=== PATIENT | female | born 1950 | race Caucasian/White ===

== ENCOUNTER 2017-07-20 09:42 | Emergency (ER) | payer MEDICARE, MEDICAID ==
[2017-07-20] MEDS ORDERED: LORazepam 2 MG/ML SDV ONE ×4 (09:45→10:23)
[2017-07-20] MEDS ORDERED: Etomidate 2 MG/ML 20 ML SDV IVPUSH ONE (09:50)
[2017-07-20] MEDS ORDERED: Rocuronium 50 MG/5 ML Vial ONE (09:50)
[2017-07-20] MEDS ORDERED: Sodium Chloride 0.9% 10 ML Syringe FLUSH PRN (09:51)
[2017-07-20] MEDS ORDERED: Sodium Chloride 0.9% 1,000 ML IV ONE (09:52)
[2017-07-20] MEDS ORDERED: DEXTROSE IV ONE ×2 (10:00)
[2017-07-20] MEDS ORDERED: [UNRECOGNIZED DRUG - OTHER] IV ONE ×2 (10:00)
[2017-07-20] MEDS ORDERED: FOSPHENYTOIN IV ONE ×2 (10:00)
[2017-07-20] MEDS ORDERED: levETIRAcetam 500 MG/5 ML SDV ONE (10:00)
[2017-07-20] MEDS ORDERED: WATER IV ONE ×2 (10:00)
[2017-07-20] MEDS ORDERED: Sodium Chloride 0.9% 100 ML ONE (10:01)
--- NOTE | 2017-07-20 10:21 | CT ---
Head CT Technique: Multiple axial sections through the brain were obtained. Intravenous contrast was not utilized. Comparison: No previous intracranial imaging. Findings: Calcification with slight surrounding low density is seen within the posterior right frontal region. Calcification measures approximately 1 cm. Low density area surrounding this region measures about 2.9 cm. Differential includes edema as well as early infarct. Minimal diminished density is noted within the periventricular white matter compatible with slight small vessel ischemic demyelination change. No other abnormal parenchymal densities are seen. No evidence of intracranial hemorrhage. No midline shift or mass effect is seen. Ventricles along the basal cisterns and sulci over convexities are mildly prominent. No acute calvarial abnormality is seen. Visualized sinuses are clear. Impression: 1. Calcification within the posterior right frontal lobe with surrounding low density either due to early infarct or edema. MRI exam is recommended which should include contrast images. 2. Mild senescent change as noted above. 3. No acute intracranial hemorrhage is seen. Diagnostic code #9
--- NOTE | 2017-07-20 11:04 | EDM.PDOC ---
ED HPI GENERAL MEDICAL PROBLEM - General Chief Complaint: Neuro Symptoms/Deficits Stated Complaint: [facility] Time Seen by Provider: 07/20/17 09:49 Source of Information: Reports: EMS History Limitations: Reports: Altered Mental Status - History of Present Illness INITIAL COMMENTS - FREE TEXT/NARRATIVE: 66 y/o F brought in by EMS for altered mental status. Per EMS, she was last seen well on Wednesday (4 days ago) by a home health worker. Today a neighbor found her unresponsive and covered in vomit. Per EMS, she was in a recliner chair when they arrived and had dried vomit on her face and also had been incontinent of stool and urine. They report she had shaking of her head on the way in concerning for possible seizure but it resolved without intervention. They did not give any meds. They checked a blood sugar which was 180. They also brought in her home meds, which include Lorazepam 1mg TID, temazepam 150mg qHS, levothyroxine, primidone, mirtazepine, and gabapentin. She has refills from early June and there are still meds left in all of the bottles. - Related Data Allergies Allergy/AdvReac Type Severity Reaction Status Date / Time aspirin AdvReac Acid Reflux Verified 07/20/17 11:29 Home Meds: Home Meds Gabapentin [Neurontin] 400 mg PO QID 07/20/17 [History] LORazepam 1 mg PO QID PRN 07/20/17 [History] Levothyroxine 75 mcg PO ACBREAKFAST 07/20/17 [History] Loperamide [Imodium AD] 2 mg PO DAILY PRN 07/20/17 [History] Mirtazapine 45 mg PO BEDTIME 07/20/17 [History] Primidone [Mysoline] 200 mg PO BEDTIME 07/20/17 [History] Rosuvastatin [Crestor] 20 mg PO DAILY 07/20/17 [History] Temazepam 30 mg PO BEDTIME 07/20/17 [History] ED ROS GENERAL - Review of Systems Review Of Systems: Unable To Obtain (unresponsive) ED EXAM, NEURO - Physical Exam Exam: See Below Exam Limited By: Other (unresponsive) Eye Exam: Bilateral Eye: Conjunctival Injection, Other Ears: Normal External Exam Nose: Normal Inspection Throat/Mouth: Other (dry mucous membranes) Head Exam: Atraumatic, Normocephalic Neck: Supple Respiratory/Chest: No Respiratory Distress, Lungs Clear, Normal Breath Sounds Cardiovascular: Normal Peripheral Pulses, Regular Rate, Rhythm, No Edema, No Murmur GI/Abdominal: Soft, Non-Tender, No Distention, Pelvis Stable Neurological: Other (unresponsive, upward eye gaze, pupils 2mm equal reactive, + rhythmic movements of head ) Back Exam: Normal Inspection Extremities: Other (old appearing ecchymosis to bilateral knees, no bony deformity or effusion, full ROM at hips and knees ) Skin Exam: Warm, Dry, Intact, Normal Color ED NEURO PROCEDURES - Endotracheal Intubation Time of Intubation: 10:30 ET Intubation Indication: Airway Protection Preparation: Suction, Balloon Tested, BVM Set Up Pre-Oxygenation: Other (high flow nasal cannula + nonrebreather at 15 L/min) Anesthesia Meds: Etomidate, Rocuronium Placement: Orotracheal, Cuffed (7.5 tube ), Uncomplicated Placement Cords Visualized: Yes Number of Attempts: 1 Confirmed By: CO2 Indicator, Bilateral Breath Sounds, Chest Xray Tube Secured By: By RT Course - Vital Signs Last Recorded V/S: Last Vital Signs Temp 36.3 C 07/20/17 11:04 Pulse 60 07/20/17 11:04 Resp 16 07/20/17 11:04 BP 127/74 07/20/17 11:04 Pulse Ox 100 07/20/17 11:04 - Orders/Labs/Meds Orders: Active Orders 24 hr Category Date Time Status EKG 12 Lead [EKG Documentation Completion] [RC] STAT Care 07/20/17 09:51 Active Peripheral IV Care [RC] . DIRECTED Care 07/20/17 09:52 Active RT Ventilator, Adult [RC] ASDIRECTED Care 07/20/17 12:19 Active Chest 1V Frontal [CR] Stat Exams 07/20/17 11:10 Taken AMMONIA VENOUS [CHEM] Stat Lab 07/20/17 10:26 Received DRUG SCREEN, URINE [URCHEM] Stat Lab 07/20/17 10:20 Ordered UA W/MICROSCOPIC [URIN] Stat Lab 07/20/17 10:20 Ordered Peripheral IV Insertion Adult [OM.PC] Routine Oth 07/20/17 09:51 Ordered Labs: Laboratory Tests 07/20/17 07/20/17 07/20/17 Range/Units 10:20 10:20 10:26 WBC 9.28 (3.98-10.04) K/mm3 RBC 4.85 (3.98-5.22) M/mm3 Hgb 15.4 (11.2-15.7) gm/L Hct 47.3 H (34.1-44.9) % MCV 97.5 H (79.4-94.8) fl MCH 31.8 (25.6-32.2) pg MCHC 32.6 (32.2-35.5) g/dl RDW Std Deviation 46.4 H (36.4-46.3) fL Plt Count 417 H (182-369) K/mm3 MPV 9.1 L (9.4-12.3) fl Neut % (Auto) 82.3 H (34.0-71.1) % Lymph % (Auto) 5.4 L (19.3-51.7) % [place] % (Auto) 12.0 (4.7-12.5) % Eos % (Auto) 0 L (0.7-5.8) Baso % (Auto) 0.1 (0.1-1.2) % Neut # (Auto) 7.64 H (1.56-6.13) K/mm3 Lymph # (Auto) 0.50 L (1.18-3.74) K/mm3 [place] # (Auto) 1.11 H (0.24-0.36) K/mm3 Eos # (Auto) 0.00 L (0.04-0.36) K/mm3 Baso # (Auto) 0.01 (0.01-0.08) K/mm3 Manual Slide Review Abnormal smear PT (9.5-12.1) SECONDS INR Sodium (136-145) mEq/L Potassium (3.5-5.1) mEq/L Chloride (98-107) mEq/L Carbon Dioxide (21-32) mEq/L Anion Gap (5-15) BUN (7-18) mg/dL Creatinine (0.55-1.02) mg/dL Est Cr Clr Drug Dosing Estimated GFR (MDRD) (>60) mL/min BUN/Creatinine Ratio (14-18) Glucose (80-115) mg/dL Lactic Acid (0.4-2.0) mmol/L Calcium (8.5-10.1) mg/dL Magnesium (1.8-2.4) mg/dl Total Bilirubin (0.2-1.0) mg/dL AST (15-37) U/L ALT (14-59) U/L Alkaline Phosphatase (46-116) U/L Creatine Kinase (26-192) U/L Troponin I (0.00-0.056) ng/mL Total Protein (6.4-8.2) g/dl Albumin (3.4-5.0) g/dl Globulin gm/dL Albumin/Globulin Ratio (1-2) Lipase (73-393) U/L Free T4 (0.76-1.46) ng/dL TSH 3rd Generation (0.358-3.74) uIU/mL Urine Color Yellow (Yellow) Urine Appearance Clear (Clear) Urine pH 6.0 (5.0-8.0) Ur Specific [place] > or = 1.030 (1.005-1.030) Urine Protein 1+ H (Negative) Urine Glucose (UA) Negative (Negative) Urine Ketones 2+ H (Negative) Urine Occult Blood Negative (Negative) Urine Nitrite Negative (Negative) Urine Bilirubin 2+ H (Negative) Urine Urobilinogen 1.0 (0.2-1.0) Ur Leukocyte Esterase Negative (Negative) Urine RBC Not seen (0-5) /hpf Urine WBC 0-5 (0-5) /hpf Ur Epithelial Cells 0-5 (0-5) /hpf Urine Bacteria Few (FEW) /hpf Urine Mucus Few (FEW) /hpf Salicylates (2.8-20) mg/dL Urine Opiates Screen Negative (NEGATIVE) Ur Buprenorphine Scrn Negative (NEGATIVE) Ur Oxycodone Screen Negative (NEGATIVE) Urine Methadone Screen Negative (NEGATIVE) Ur Propoxyphene Screen Negative (NEGATIVE) Acetaminophen (10-30) ug/mL Ur Barbiturates Screen Presumptive positive H (NEGATIVE) Ur Tricyclics Screen Negative (NEGATIVE) Ur Phencyclidine Scrn Negative (NEGATIVE) Ur Amphetamine Screen Negative (NEGATIVE) U Methamphetamines Scrn Negative (NEGATIVE) U Benzodiazepines Scrn Presumptive positive H (NEGATIVE) U Cocaine Metab Screen Negative (NEGATIVE) U Marijuana (THC) Screen Negative (NEGATIVE) Ethyl Alcohol (0.00) gm% 07/20/17 07/20/17 07/20/17 Range/Units 10:26 10:26 10:26 WBC (3.98-10.04) K/mm3 RBC (3.98-5.22) M/mm3 Hgb (11.2-15.7) gm/L Hct (34.1-44.9) % MCV (79.4-94.8) fl MCH (25.6-32.2) pg MCHC (32.2-35.5) g/dl RDW Std Deviation (36.4-46.3) fL Plt Count (182-369) K/mm3 MPV (9.4-12.3) fl Neut % (Auto) (34.0-71.1) % Lymph % (Auto) (19.3-51.7) % [place] % (Auto) (4.7-12.5) % Eos % (Auto) (0.7-5.8) Baso % (Auto) (0.1-1.2) % Neut # (Auto) (1.56-6.13) K/mm3 Lymph # (Auto) (1.18-3.74) K/mm3 [place] # (Auto) (0.24-0.36) K/mm3 Eos # (Auto) (0.04-0.36) K/mm3 Baso # (Auto) (0.01-0.08) K/mm3 Manual Slide Review PT 48.7 H (9.5-12.1) SECONDS INR 4.60 Sodium 150 H (136-145) mEq/L Potassium 3.7 (3.5-5.1) mEq/L Chloride 108 H (98-107) mEq/L Carbon Dioxide 27 (21-32) mEq/L Anion Gap 18.7 H (5-15) BUN 54 H (7-18) mg/dL Creatinine 1.3 H (0.55-1.02) mg/dL Est Cr Clr Drug Dosing TNP Estimated GFR (MDRD) 41 (>60) mL/min BUN/Creatinine Ratio 41.5 H (14-18) Glucose 199 H (80-115) mg/dL Lactic Acid 2.0 (0.4-2.0) mmol/L Calcium 9.0 (8.5-10.1) mg/dL Magnesium 2.5 H (1.8-2.4) mg/dl Total Bilirubin 0.6 (0.2-1.0) mg/dL AST 27 (15-37) U/L ALT 35 (14-59) U/L Alkaline Phosphatase 139 H (46-116) U/L Creatine Kinase 294 H (26-192) U/L Troponin I 0.214 H* (0.00-0.056) ng/mL Total Protein 7.8 (6.4-8.2) g/dl Albumin 3.6 (3.4-5.0) g/dl Globulin 4.2 gm/dL Albumin/Globulin Ratio 0.9 L (1-2) Lipase 190 (73-393) U/L Free T4 0.95 (0.76-1.46) ng/dL TSH 3rd Generation 5.848 H (0.358-3.74) uIU/mL Urine Color (Yellow) Urine Appearance (Clear) Urine pH (5.0-8.0) Ur Specific [place] (1.005-1.030) Urine Protein (Negative) Urine Glucose (UA) (Negative) Urine Ketones (Negative) Urine Occult Blood (Negative) Urine Nitrite (Negative) Urine Bilirubin (Negative) Urine Urobilinogen (0.2-1.0) Ur Leukocyte Esterase (Negative) Urine RBC (0-5) /hpf Urine WBC (0-5) /hpf Ur Epithelial Cells (0-5) /hpf Urine Bacteria (FEW) /hpf Urine Mucus (FEW) /hpf Salicylates (2.8-20) mg/dL Urine Opiates Screen (NEGATIVE) Ur Buprenorphine Scrn (NEGATIVE) Ur Oxycodone Screen (NEGATIVE) Urine Methadone Screen (NEGATIVE) Ur Propoxyphene Screen (NEGATIVE) Acetaminophen 0 L (10-30) ug/mL Ur Barbiturates Screen (NEGATIVE) Ur Tricyclics Screen (NEGATIVE) Ur Phencyclidine Scrn (NEGATIVE) Ur Amphetamine Screen (NEGATIVE) U Methamphetamines Scrn (NEGATIVE) U Benzodiazepines Scrn (NEGATIVE) U Cocaine Metab Screen (NEGATIVE) U Marijuana (THC) Screen (NEGATIVE) Ethyl Alcohol 0.00 (0.00) gm% 07/20/17 Range/Units 10:26 WBC (3.98-10.04) K/mm3 RBC (3.98-5.22) M/mm3 Hgb (11.2-15.7) gm/L Hct (34.1-44.9) % MCV (79.4-94.8) fl MCH (25.6-32.2) pg MCHC (32.2-35.5) g/dl RDW Std Deviation (36.4-46.3) fL Plt Count (182-369) K/mm3 MPV (9.4-12.3) fl Neut % (Auto) (34.0-71.1) % Lymph % (Auto) (19.3-51.7) % [place] % (Auto) (4.7-12.5) % Eos % (Auto) (0.7-5.8) Baso % (Auto) (0.1-1.2) % Neut # (Auto) (1.56-6.13) K/mm3 Lymph # (Auto) (1.18-3.74) K/mm3 [place] # (Auto) (0.24-0.36) K/mm3 Eos # (Auto) (0.04-0.36) K/mm3 Baso # (Auto) (0.01-0.08) K/mm3 Manual Slide Review PT (9.5-12.1) SECONDS INR Sodium (136-145) mEq/L Potassium (3.5-5.1) mEq/L Chloride (98-107) mEq/L Carbon Dioxide (21-32) mEq/L Anion Gap (5-15) BUN (7-18) mg/dL Creatinine (0.55-1.02) mg/dL Est Cr Clr Drug Dosing Estimated GFR (MDRD) (>60) mL/min BUN/Creatinine Ratio (14-18) Glucose (80-115) mg/dL Lactic Acid (0.4-2.0) mmol/L Calcium (8.5-10.1) mg/dL Magnesium (1.8-2.4) mg/dl Total Bilirubin (0.2-1.0) mg/dL AST (15-37) U/L ALT (14-59) U/L Alkaline Phosphatase (46-116) U/L Creatine Kinase (26-192) U/L Troponin I (0.00-0.056) ng/mL Total Protein (6.4-8.2) g/dl Albumin (3.4-5.0) g/dl Globulin gm/dL Albumin/Globulin Ratio (1-2) Lipase (73-393) U/L Free T4 (0.76-1.46) ng/dL TSH 3rd Generation (0.358-3.74) uIU/mL Urine Color (Yellow) Urine Appearance (Clear) Urine pH (5.0-8.0) Ur Specific [place] (1.005-1.030) Urine Protein (Negative) Urine Glucose (UA) (Negative) Urine Ketones (Negative) Urine Occult Blood (Negative) Urine Nitrite (Negative) Urine Bilirubin (Negative) Urine Urobilinogen (0.2-1.0) Ur Leukocyte Esterase (Negative) Urine RBC (0-5) /hpf Urine WBC (0-5) /hpf Ur Epithelial Cells (0-5) /hpf Urine Bacteria (FEW) /hpf Urine Mucus (FEW) /hpf Salicylates 4.8 (2.8-20) mg/dL Urine Opiates Screen (NEGATIVE) Ur Buprenorphine Scrn (NEGATIVE) Ur Oxycodone Screen (NEGATIVE) Urine Methadone Screen (NEGATIVE) Ur Propoxyphene Screen (NEGATIVE) Acetaminophen (10-30) ug/mL Ur Barbiturates Screen (NEGATIVE) Ur Tricyclics Screen (NEGATIVE) Ur Phencyclidine Scrn (NEGATIVE) Ur Amphetamine Screen (NEGATIVE) U Methamphetamines Scrn (NEGATIVE) U Benzodiazepines Scrn (NEGATIVE) U Cocaine Metab Screen (NEGATIVE) U Marijuana (THC) Screen (NEGATIVE) Ethyl Alcohol (0.00) gm% Meds: Medications Discontinued Medications Generic Name Dose Route Start Last Admin Trade Name Freq PRN Reason Stop Dose Admin Sodium Chloride 1,000 mls @ 1,000 mls/hr 07/20/17 09:52 Normal Saline IV 07/20/17 10:51 ONETIME ONE Sodium Chloride Confirm 07/20/17 10:01 Normal Saline Administered 07/20/17 10:02 Dose 100 mls @ as directed .ROUTE .STK-MED ONE Propofol Confirm 07/20/17 10:31 Diprivan 100 Ml Administered 07/20/17 10:32 Dose 100 mls @ as directed .ROUTE .STK-MED ONE Lorazepam Confirm 07/20/17 10:23 Ativan Administered 07/20/17 10:24 Dose 6 mg .ROUTE .STK-MED ONE Lorazepam Confirm 07/20/17 09:45 Ativan Administered 07/20/17 09:46 Dose 2 mg .ROUTE .STK-MED ONE Lorazepam Confirm 07/20/17 09:48 Ativan Administered 07/20/17 09:49 Dose 2 mg .ROUTE .STK-MED ONE Lorazepam Confirm 07/20/17 10:01 Ativan Administered 07/20/17 10:02 Dose 2 mg .ROUTE .STK-MED ONE Sodium Chloride 10 ml 07/20/17 09:51 Saline Flush FLUSH ASDIRECTED PRN Keep Vein Open - Re-Assessments/Exams Free Text/Narrative Re-Assessment/Exam: 07/20/17 11:50 EKG shows normal sinus rhythm, subtle ST elevation V2, otherwise no signs of acute ischemia. Patient was given multiple doses of ativan due to concern for seizure activity. Ativan boluses did seem to cease the head movements and stiffness, but she never had any verbal response, spontaneous eye opening, or spontaneous limb movements. Did not respond to painful stimuli except nurses report she grimaced when they placed a [place]. I witnessed at least 3 discrete episodes of the head shaking movements. She was also loaded with Keppra 1500 IV. After keppra load and total of 15 mg ativan, she continued to be unresponsive. Decision was made to intubate, see notes for further details. By that time fosphenytoin load was also in progress (2000 [address] PE). CT head showed 1 cm calcified lesion in the posterior R Frontal area with 2.9 cm surrounding edema vs. ischemia. I initially discussed with the tie cutter at [facility] around 10:35 AM who was concerned that his facility lacked continuous EEG monitoring and therefore did not accept the patient for transfer. I then discussed with team of physicians at [facility], including Dr. Lugo, who accepted the patient for transfer at 11 AM. Fastest option for transport was [facility] fixed wing. Patient continued to be stable on a propofol drip post- intubation. 07/20/17 13:53 Later review of her medications shows that she is on primidone, raising the possibility that she has an underlying seizure disorder at baseline. I called the [facility] coordinator in [place] and asked her to advise the accepting MD of this information. 07/20/17 14:14 Departure - Departure Time of Disposition: 11:30 Disposition: DC/Tfer to Acute Hospital 02 Clinical Impression: Status epilepticus Altered mental status Qualifiers: Altered mental status type: coma Coma depth: Angel coma 3-8 Coma timing: at arrival to emergency department Qualified Code(s): R40.2432 - Angel coma scale score 3-8, at arrival to emergency department - Discharge Information Referrals: PCP,Unknown [Primary Care Provider] - Forms: ED Department Discharge Critical Care Note - Critical Care Note Total Time (mins): 70 - My Orders Last 24 Hours: My Active Orders 07/20/17 09:51 EKG 12 Lead [EKG Documentation Completion] [RC] STAT Peripheral IV Insertion Adult [OM.PC] Routine 07/20/17 09:52 Peripheral IV Care [RC] . DIRECTED 07/20/17 10:20 DRUG SCREEN, URINE [URCHEM] Stat UA W/MICROSCOPIC [URIN] Stat 07/20/17 10:26 AMMONIA VENOUS [CHEM] Stat 07/20/17 11:10 Chest 1V Frontal [CR] Stat 07/20/17 12:19 RT Ventilator, Adult [RC] ASDIRECTED - Assessment/Plan Last 24 Hours: My Active Orders 07/20/17 09:51 EKG 12 Lead [EKG Documentation Completion] [RC] STAT Peripheral IV Insertion Adult [OM.PC] Routine 07/20/17 09:52 Peripheral IV Care [RC] . DIRECTED 07/20/17 10:20 DRUG SCREEN, URINE [URCHEM] Stat UA W/MICROSCOPIC [URIN] Stat 07/20/17 10:26 AMMONIA VENOUS [CHEM] Stat 07/20/17 11:10 Chest 1V Frontal [CR] Stat 07/20/17 12:19 RT Ventilator, Adult [RC] ASDIRECTED
[2017-07-20 12:01] LABS: ACETAMINOPHEN 0 ug/mL (10-30)
--- NOTE | 2017-07-21 11:45 | CT ---
Chest: Frontal view of the chest was obtained. Comparison: Prior chest x-ray of 12/02/13. Endotracheal tube is seen. Tip lies slightly below the inferior level of the clavicles. Nasogastric tube is coiled within the stomach. Heart size is normal. Mild tortuosity of the thoracic aorta is seen. Lungs are clear. Mild scattered degenerative change throughout the spine is seen. Impression: 1. Satisfactory position of endotracheal tube and nasogastric tube. 2. Nothing acute is appreciated. Diagnostic code #2 MTDD
== END 2017-07-20 11:37 ==
LOC: JD.ED 09:42
DX: G40.901 Epilepsy, unspecified, not intractable, with status epilepticus (principal); R40.2432 Glasgow coma scale score 3-8, at arrival to emergency department; Z88.6 Allergy status to analgesic agent; Z79.899 Other long term (current) drug therapy
CPT/HCPCS: 31500; 36415; 51702; 70450; 71045; 80053; 80306; 81001; 82140; 82550; 83605; 83690; 83735; 84439; 84443; 84484; 85025; 85610; 93005; 96365; 96367; 96374; 96375; 99291; G0480; J1953; J2060; J7030; J7040; J7050; J7060; Q2009; 99285-25; J3490